=== PATIENT | male | born 1965 | race Caucasian/White ===

== ENCOUNTER 2016-09-20 11:15 | Emergency (ER) | payer OTHER ==
[~2016-09-20] VITALS: Wt 81.0 kg
[2016-09-20] MEDS ORDERED: SUMA100T9 PO (13:00)
[2016-09-20] MEDS ORDERED: FIORICET PO (13:00)
[2016-09-20] MEDS ORDERED: IBUP-1542 PO (13:02)
--- NOTE | 2016-09-20 13:11 | ERD ---
ER Documentation Chief Complaint Date/Time DATE: 09/20/16 TIME: 13:08 Chief Complaint FEVER/BODY PAIN X 1 WEEK HPI This 51-year-old male presents with a 5 day history of body aches and fever and cough. He had a lot of sweating last night and no fever today. He does feel like it might be improving but is worried about the duration of his symptoms. He has an additional complaint that he has a history of cluster headaches and he feels like his recent illnesses causing to have a headache. He is out of his medication which is usually Imitrex and Fioricet. He has no current fever triage, vomiting, abdominal pain, urinary complaints, neck stiffness, rashes ROS All systems reviewed and are negative except as per history of present illness. Medications Home Meds Active Scripts Ibuprofen* (Motrin*) 600 Mg Tab, 600 MG PO Q6, #15 TAB Prov:MERVNI QUEZADA MD 09/20/16 Sumatriptan Succinate* (Imitrex*) 100 Mg Tablet, 100 MG PO BID Y for MIGRAINE HEADACHE, #10 TAB May repeat after 2 hours if needed; MAX 200 mg/24 hours Prov:MERVIN QUEZADA MD 09/20/16 Acetamin/Butalbital/Caffeine* (Fioricet*) [id number] Tab, 1 TAB PO Q6H Y for PAIN, #30 TAB Prov:MERVIN QUEZADA MD 09/20/16 Allergies Allergies: Coded Allergies: No Known Allergy (Unverified , 12/22/15) PMhx/Soc History of Surgery: Yes (CHEST TUBE 30 YEARS AGO) Hx Neurological Disorder: No Hx Respiratory Disorders: No Hx Cardiac Disorders: No Hx Psychiatric Problems: No Hx Miscellaneous Medical Probl: No Hx Alcohol Use: Yes (OCCASIONAL) Hx Substance Use: No Hx Tobacco Use: No Smoking Status: Never smoker Physical Exam Vitals Vital Signs Date Time Temp Pulse Resp B/P Pulse Ox O2 Delivery O2 Flow Rate FiO2 09/20/16 11:26 98.0 76 18 147/76 99 Physical Exam Const: [] Alert, [id number] pleasant. Head: Atraumatic Eyes: Normal Conjunctiva ENT: Normal External Ears, Nose and Mouth. Neck: Full range of motion..~ No meningismus. Resp: Clear to auscultation bilaterally Cardio: Regular rate and rhythm, no murmurs Abd: Soft, non tender, non distended. Normal bowel sounds Skin: No petechiae or rashes Back: No midline or flank tenderness Ext: No cyanosis, or edema Neur: Awake and alert Psych: Normal Mood and Affect Procedures/MDM Patient presents with primary complaints of fever, body aches and cough and currently has no fever. Signs or symptoms show no signs of pneumonia, acute abdomen, meningitis or symptoms of UTI. I suspect he has a resolving viral illness or influenza. Patient claims that his cluster headache is causing most of his symptoms and is requesting a refill on repeat will be provided for this. Patient and I agree that given that he has no fever and symptoms are improving recommending 1-2 more days of observation allow viral illness to resolve before any further invasive studies, but should otherwise return to the ER for new or worsening symptoms prior to that. The patient was stable with no new complaints during the ER course. Clinically, there is no current evidence to suggest meningitis, sepsis, acute abdomen, pneumonia, acute coronary syndrome , pulmonary embolism, or any other emergent condition appearing to require further evaluation or hospitalization. The patient should certainly return for any new or worsening symptoms per the aftercare instructions. They should otherwise follow-up with her primary care doctor for reevaluation this week. Departure Diagnosis: Primary Impression: Fever Fever type: unspecified Qualified Code: R50.9 - Fever, unspecified fever cause Additional Impression: Cluster headache Headache chronicity pattern: unspecified pattern Intractability: not intractable Qualified Code: G44.009 - Cluster headache, not intractable, unspecified chronicity pattern Condition: Stable Patient Instructions: Febrile Illness, Uncertain Cause (Adult), Influenza ( Adult) Additional Instructions: Suspect resolving viral illness or influenza. Recommend 1-2 more days of observation, rest and fluids. Recheck for fever over additional 48 hours, sooner for new or worsening symptoms. MERVIN QUEZADA MD Sep 20, 2016 13:11
[2016-09-20 14:05] VITALS: BP 122/71; PULSE 75; RESP 18; TEMP 98.7
== END 2016-09-20 14:05 | disposition home or self-care (01) ==
LOC: FTE 11:15
DX: R50.9 Fever, unspecified (principal); G44.009 Cluster headache syndrome, unspecified, not intractable
CPT/HCPCS: 99284